=== PATIENT | female | born 1990 | race Caucasian/White ===

== ENCOUNTER 2019-07-09 07:42 | Outpatient (CLI) | payer OTHER, SELFPAY ==
[2019-07-09 07:53] LABS: Hemoglobin 12.2 g/dL (12.0-15.0); Mean Corpuscular HGB Conc 32.1 g/dl (32-36); Mean Corpuscular Hemoglobin 24.9 pg (26-34); Mean Corpuscular Volume 77.6 fl (80-100); Mean Platelet Volume 9.3 fl (7.4-10.4); Platelet Count Result 336 k/mm3 (150-375); Red Cell Distribution Width 14.8 % (11.5-14.5); White Blood Count 11.3 K/mm3 (4.5-10.0)
[2019-07-09 08:08] LABS: Alanine Aminotransferase 22 U/L (4-35); Albumin Level 4.1 g/dL (3.5-5.1); Alkaline Phosphatase 70 U/L (38-126); Aspartate Amino Transferase 25 U/L (14-36); Bilirubin,Total 0.4 mg/dL (0.2-1.3); Blood Urea Nitrogen 11 mg/dL (7-17); Calcium 9.1 mg/dL (8.4-10.2); Carbon Dioxide 28 mmol/L (22-30); Chloride 101 mmol/L (98-107); Cholesterol 169 mg/dL (0-200); Estimated Glomerular Filt Rate > 60; Glucose 101 mg/dL (65-105); HDL Direct 45 mg/dL; Potassium 3.8 mmol/L (3.4-5.0); Sodium 137 mmol/L (137-145); Triglycerides 123 mg/dL (<150)
[2019-07-09 08:19] LABS: LDL Cholesterol Direct 92 mg/dL
[2019-07-09 09:13] LABS: Folic Acid 9.3 ng/mL (2.76->20)
== END 2019-07-09 07:43 | disposition home or self-care (01) ==
PROVIDERS: PCP Internal Medicine; Visit Provider Internal Medicine
DX: Z00.00 Encounter for general adult medical examination without abnormal findings (principal); R53.83 Other fatigue
CPT/HCPCS: 36415; 80053; 80061; 82607; 82746; 84443; 85027

== ENCOUNTER 2019-08-20 00:11 | Outpatient (CLI) | payer OTHER, SELFPAY ==
[2019-08-20 17:48] LABS: SARS-CoV-2 RNA PCR Negative
== END 2019-08-20 00:12 | disposition home or self-care (01) ==
LOC: ANHCOVIDDT 00:11
PROVIDERS: PCP Internal Medicine; Visit Provider Podiatrist Foot & Ankle Surgery
DX: Z01.812 Encounter for preprocedural laboratory examination (principal); Z20.828 Contact with and (suspected) exposure to other viral communicable diseases
CPT/HCPCS: 87635; C9803; U0003

== ENCOUNTER 2019-08-23 01:01 | Day surgery (SDC) | payer OTHER, SELFPAY ==
[2019-08-18 13:41] VITALS: BMI 47.0
[2019-08-23] VITALS (9 sets, daily range): BP systolic 118–146; BP diastolic 67–95; PULSE 66–103; RESP 16–18; TEMP 36.1–36.9; O2SAT 97–100
[2019-08-23] MEDS: LACTATED RINGERS 1,000 ML 30 ML IV CONT ×2 (06:45→08:24)
--- NOTE | 2019-08-23 06:57 | P.PNAN_ITS ---
Anes - Initial Pre Proc Eval Procedure: Operation Date: 08/23/19 07:30 Proposed Procedures p Excision of Right Foot Fracture Fragment Fifth Metatarsal Base, Possible Tendon [place] Reattachment - Victor M Gilliam DPM Date/Time: 08/23/19 06:57 Surgeon: Victor M Gilliam DPM Pre Op Diagnosis: Fracture Patient Data Age: 29 Gender: F Height: 1.7 m Weight: 136.08 kg Allergies Allergy/AdvReac Type Severity Reaction Status Date / Time No Known Allergies Allergy Mild Verified 08/18/19 13:33 Home Medications Medication Instructions Recorded Confirmed Type metformin 500 mg tablet 500 mg PO BID 03/25/19 08/18/19 History levothyroxine 25 mcg tablet 25 mcg PO DAILY #90 tablet 07/26/19 08/18/19 Rx venlafaxine 75 mg capsule,extended 75 mg PO DAILY #30 cap 07/26/19 08/18/19 Rx release 24 hr norgestimate-ethinyl estradiol 1 tablet PO DAILY 08/18/19 08/18/19 History [Estarylla] Patient hx anesthesia problems: none Family hx anesthesia problems: none [facility] Past Medical History Medical History (Updated 08/23/19 @ 06:57 by Shorty Gorman DO) Anxiety Hypothyroidism Polycystic ovary syndrome Social History Social History (Updated 07/26/19 @ 14:40 by Marybeth Gaytan CMA) Smoking status: Never smoker Second hand tobacco smoke exposure: No Alcohol intake: never Substance use: never Anes - Eval Final PreProcedure Day of Procedure 08/23/19 06:57 Patient weight: morbidly obese Heart: regular rate and rhythm Lungs: clear to auscultation and normal air movement Airway: Mallampati scale class II Neurological: alert and oriented Last oral intake: >/= 8 hours ASA classification: III Emergent: no Anesthetic plan: proceed Anesthesia type and monitoring: general LMA and standard monitoring Informed Consent: The patient's anesthetic plan and its attendant risks and benefits were discussed with the patient/family/POA. Questions were solicited and answers provided to the satisfaction of the patient/family/POA.
--- NOTE | 2019-08-23 07:04 | WPDHPUPDATE1 ---
History and Physical Update Update Date/Time: 08/23/19 07:04 History and Physical has been reviewed, including an updated exam of the patient. There are NO changes in the patient's condition. Risks, benefits, and alternatives have been discussed and questions answered. Patient agrees to proceed with procedure. Proposed procedure: Excision of 5th metatarsal fracture fragment, right foot.
[2019-08-23] MEDS: ceFAZolin 3 GM/D5W 100 ML 100 ML IVPB (07:22)
--- NOTE | 2019-08-23 08:27 | P.OP_ITS ---
Procedure Note - Detailed Date of procedure: 08/23/19 Pre-op diagnosis: Fracture Fracture 5th metatarsal base right foot. Post-op diagnosis: same Procedure performed: Excision Fracture Fragment 5th metatarsal base with Peroneal tendon reattachment with anchor, right foot. Description of procedure: Patient was brought into the operating room and placed on the operating room table in the supine position. Following general aneshtesia, local anesthesia was administered consisting of 30ccs of 1:1 mixture of 0.5% marcaine plain and 1% lidocaine plain. The foot was then scrubbed, prepped, and draped in the usual aseptic technique. The foot was exsanguinated utilizing an esmarch bandage and the pneumatic ankle tourniquet was inflated. A 6cm dorsal linear incision was made over the 5th metatarsal. The incision was deepened utilizing sharp and blunt dissection. A periosteal incision was made to the 5th metatarsal base. The nonunion of the 5th metatarsal base was identified. The fracture fragment was carefully dissected and release from the peroneus brevis tendon. The fracture fragment was removed in toto. The remaining base of the 5th metatarsal was then filed utilizing a hand-held rasp. The wound was flushed with copious amounts of sterile normal saline. Next, utilizing standard AO principles and technique, a [employer] anchor 2.7mm with force fiber suture, was introduced into the 5th metatarsal. The anchor purchased the bone well and was stable. The suture was then used to bring the peroneal tendon back to the 5th metatarsal with the foot placed in the neutral position. Deep structures were coapted and reapproximated using 3-0 vicryl. The skin was coapted with 4-0 nylon. The surgical site was dressed with betadine ointment, adapetc, gauze, cling, and coban. The pneumatic ankle tourniquet was release and a prompt capillary refill response was noted. The patient was transported with the PACU with vital signs stable and vascular status intact. Following a period of post operative monitoring, the patient will be discharged home with the following instructions: limit weightbearing with the CAM boot, ice and elevate the right foot when at rest, keep the dressing clean and dry, and decrease activity. She has a follow-up appointment in one weeks time, sooner if problems arise. Implants: [employer] [place] 2.7mm; 3-0 Vicryl, 4-0 Nylon. 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
[2019-08-23] MEDS: ONDANSETRON INJ 4 MG/2 ML VIAL IV PUSH (08:38)
--- NOTE | 2019-08-23 10:25 | SUR.PHASEI ---
1015: Handwritten prescription for [place] sent home with patient.
== END 2019-08-23 10:15 | disposition home or self-care (01) ==
PROVIDERS: PCP Internal Medicine; Visit Provider Podiatrist Foot & Ankle Surgery
PROC: (CPT 28485; principal; 2019-08-23 07:30)
DX: S92.351A Displaced fracture of fifth metatarsal bone, right foot, initial encounter for closed fracture (principal); M76.71 Peroneal tendinitis, right leg; M67.873 Other specified disorders of tendon, right ankle and foot; E28.2 Polycystic ovarian syndrome; E03.9 Hypothyroidism, unspecified; F41.9 Anxiety disorder, unspecified; X58.XXXA Exposure to other specified factors, initial encounter; E66.01 Morbid (severe) obesity due to excess calories; Z68.43 Body mass index [BMI] 50.0-59.9, adult; Z79.84 Long term (current) use of oral hypoglycemic drugs
CPT/HCPCS: 28485; 28200; A9270; C1713; J0690; J1100; J1200; J2250; J2405; J2704; J3010; J7120; L2116

== ENCOUNTER 2020-04-20 09:51 | Outpatient (CLI) | payer BC, SELFPAY ==
--- NOTE | ~2020-04-20 | XR_ITS ---
EXAMINATION: XR hysterosalpingogram INDICATION: Irregular menstruation TECHNIQUE: Hysterosalpingogram was performed by Dr. Chris Doan MD with fluoroscopic guidance. I was present to obtain fluoroscopic images. Fluoroscopy exposure time was 0.3 minutes. The DAP for this procedure was 2.8 Gycm2. FINDINGS: Lead Generation Marketing Manager radiograph demonstrates an unremarkable pelvis. Fluoroscopic images demonstrate a no rmal appearing endometrial cavity which has been cannulated. Upon injection of contrast, both fallop [place] tubes opacify and are normal in appearance. There is free spillage bilaterally. Uterus is withou t evidence of synechia. IMPRESSION: 1. Patent fallopian tubes. Reviewed, dictated and finalized at location A. [employer] IMPRESSION: 1. Patent fallopian tubes.
[2020-04-20 10:49] LABS: Beta HCG Quantitative < 2.39 mIU/ML
== END 2020-04-20 09:52 | disposition home or self-care (01) ==
LOC: ANHIMG 09:52
PROVIDERS: PCP Internal Medicine; Visit Provider Obstetrics & Gynecology
DX: N92.6 Irregular menstruation, unspecified (principal)
CPT/HCPCS: 36415; 58340; 74740; 84702; Q9966

== ENCOUNTER 2022-10-29 08:05 | Outpatient (CLI) | payer OTHER, SELFPAY ==
--- NOTE | 2022-11-07 12:28 | WPDHOMESLEEP ---
Sleep Study - Home Unattended Date of Study: 10/29/22 Ordering Provider: Mya Cheng MD Interpreting Provider: Mya Cheng MD Home Sleep Study Type: Watch PAT Height: 1.68 m Weight: 137.892 kg Body Mass Index: 49.0 Neck Circumference (inches): 15.75 [place]: 10 Reason for Sleep Study Hypersomnia, loud snoring Sleep History Nata Dacosta is a 32-year old female with a long history of excessive daytime sleepiness and loud snoring, at least 15 years. She has polycystic ovary disease with insulin resistance, thyroid dysfunction, depression and ADHD. multiple medications for these conditions. She takes a stimulant during the day, Azstarys, for ADHD. Since 2021, she has lost 70 lb. She cannot sleep through an entire night. She sleeps for a few hours, wakes up, stays awake for a few hours before falling asleep again. She tosses and turns all night. She has a difficult time falling asleep, staying asleep and waking in the morning. There is a family history of sleep apnea, her father has a diagnosis. He rarely awakens from sleep feeling short of breath. She rarely awakens at night with heartburn, belching or coughing. She frequently snores, rarely loudly enough that others complain. She always has difficulty sleeping with a cold. She does not gasp for breath at night. She occasionally sweats excessively at night. She occasionally notices her heart pounding or beating irregularly at night. She occasionally falls asleep in the day, rarely falls asleep involuntarily, never falls asleep while driving. She occasionally has loss of muscle tone with strong emotion. She occasionally has daytime difficulties due to excessive sleepiness. 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 she occasionally feels paralyzed on waking or falling asleep. She frequently has vivid dreamlike scenes upon awakening or falling asleep. She occasionally feels afraid to go to sleep. She occasionally has nightmares. She frequently remembers her dreams. She always has racing thoughts, feelings of sadness, depression and anxiety. She frequently has muscular tension. She occasionally notices parts of her body jerking. She rarely kicks at night. She rarely has crawling and aching feelings in her legs. She rarely has any kind of leg pain at night. She constantly has morning jaw pain. She rarely grinds her teeth at night. She frequently is bothered by pain during the day. She rarely is awakened by pain at night. She always wakes up feeling stiff in the morning. Occasionally she wakes up with sore achy muscles and pain in the neck and spine. She has fatigue, headaches, memory problems, insomnia and concentration difficulties. She takes antacids regularly. Normal Bedtime is 9:00 p.m. but she is not asleep until 12 midnight. Sometimes it takes minutes to fall asleep or hours just depending on the night. She has tried meditation techniques and other techniques to get to sleep and stay asleep. She has also used multiple different sedative hypnotics without much success. She typically wakes up between 4 and 5 times during the night. these episodes of awaken is last between 30 minutes to an hour and a half. They occur soon after falling asleep and in the bili the night. While awake, she goes to the bathroom, tries to reposition in bed and usually ends up using her telephone during the night. Her normal wake time is between 6 and 7:00 a.m.. She keeps the same schedule on weekends. She estimates at best, she gets 4-5 hours of sleep at night. She takes naps in the afternoon or evening. A short nap lasting 10 or 15 minutes is not refreshing. She is drowsy on and off throughout the day. She feels better in the morning compared to other times a day. Habits: Never smoked tobacco. Caffeine 1 soda or energy drink daily. No alcohol or recreational substances. [facility] Past Medical History Medical History (Updated 11/07/22 @ 12:37 by Mya Cheng MD) ADHD Anxiety
[2022-11-07 12:51] VITALS: BMI 49.0
== END 2022-10-30 11:00 | disposition home or self-care (01) ==
LOC: ANHCSM 08:05
PROVIDERS: PCP Internal Medicine; Visit Provider Internal Medicine Critical Care Medicine
DX: G47.10 Hypersomnia, unspecified (principal)
CPT/HCPCS: 95800

== ENCOUNTER 2023-11-06 08:40 | Outpatient (CLI) | payer OTHER, SELFPAY ==
--- NOTE | 2023-11-27 21:36 | WPDSLEEPSTUD ---
Sleep Study Date of Study: 11/06/23 Ordering Provider: Mya Cheng MD Interpreting Physician: Mya Cheng MD Sleep Study Type: Polysomnogram Height: 1.73 m Weight: 142.882 kg Body Mass Index: 47.9 Neck Circumference (inches): 16.5 [place]: 15 Reason for Sleep Study Poor sleep quality, sleeping only 2-3 hours at a time, some days she has no sleep; has features that suggest narcolepsy including frequent vivid dreams on falling asleep, loss of muscle tone with strong emotion, rarely feeling paralyzed on waking or falling asleep. Sleep deprivation can mimic narcolepsy. * 10/29/2022, home sleep test using WatchPat that was negative for sleep-disordered breathing, BMI was 49 Sleep History Nata Dacosta is a 33-year-old woman with extremely poor sleep for the last 10 years. Her medical comorbidities include depression, anxiety, ADHD, PCOS, insulin resistance and hypothyroidism. Most of the time she can only sleep 2-3 hours before waking. She is frequently tossing turning and repositioning at least every hour. She can go days without sleep. She has difficulty shutting her brain off at night. Sometimes she starts dreaming the moment she closes her eyes. She is constantly tired. She has overwhelming urge to sleep during the day, sometimes has to stop what she is doing to take a nap. She male only sleep for 15 minutes before waking. He sometimes a nap may last 2 hours. There is a family history of sleep issues, her father has insomnia and sleep apnea, uses a CPAP. The patient has used multiple types of sleep medication. She has used sleep tracking. She rarely awakens from sleep feeling short of breath. She never awakens at night with heartburn, belching or coughing. She occasionally snores but only rarely loudly enough that others complain. She frequently has difficulty sleeping with a cold. She never wakes up gasping for breath at night. She occasionally has breathing problems at night observed by others. She does not sweat excessively at night but she does awaken feeling very hot. She occasionally notices her heart pounding or beating irregularly during naps more than during the night. She occasionally falls asleep during the day but never involuntarily or while driving. She frequently has loss of muscle tone with strong emotion. She frequently has daytime difficulties due to excessive sleepiness. 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 She rarely feels paralyzed on waking or falling asleep. She constantly has vivid dreamlike scenes upon awakening or falling asleep. She rarely feels afraid to go to sleep. She occasionally has nightmares. She frequently remembers her dreams. She constantly has racing thoughts. She frequently feels sad, depressed or anxious. She rarely has muscular tension. She occasionally notices parts of her body jerking. She never kicks at night. She never has uncomfortable feelings in her legs. She rarely has any kind of leg pain at night. She constantly has morning jaw pain. She rarely grinds her teeth during sleep. She frequently is bothered by pain during the day, rarely awakened by pain at night. She constantly wakes up feeling stiff in the morning, frequently wakes up with sore achy muscles and constantly wakes up with pain in the neck and spine. She has memory problems and concentration difficulties. She has fatigue, headaches, nightmares and insomnia. She reports 40 lb weight loss in the last year. Normal bedtime is 9:00 p.m., falling asleep instantly or taking 20 minutes or longer. She typically wakes up 3-4 times during the night. She may stay awake 30 minutes or up to 2 hours. While awake, she goes to the bathroom, takes her dogs out, tries to fall asleep and if she has a difficult time she will read or use her phone. Her normal wake time is 5:00 a.m.. On weekends, her bedtime is between 9:00 p.m. and 11:00 p.m.. Her wake time is between 5:00 a.m. an
[2023-11-27 22:59] VITALS: BMI 47.9
== END 2023-11-07 06:49 | disposition home or self-care (01) ==
LOC: ANHCSM 08:41
PROVIDERS: PCP Internal Medicine; Visit Provider Internal Medicine Critical Care Medicine
DX: G47.33 Obstructive sleep apnea (adult) (pediatric) (principal); G47.10 Hypersomnia, unspecified; F90.9 Attention-deficit hyperactivity disorder, unspecified type; F41.8 Other specified anxiety disorders; E03.9 Hypothyroidism, unspecified
CPT/HCPCS: 95810